=== PATIENT | male | born 1995 | race Caucasian/White ===

== ENCOUNTER 2023-07-10 13:13 | Emergency (ER) | payer OTHER ==
[~2023-07-10] VITALS: Ht 170.2 cm; Wt 86.6 kg
[2023-07-10 13:44] VITALS: TEMP 98.6
[2023-07-10] MEDS ORDERED: AMOXICILLIN TRIHYDRATE 500 MG CAPSULE PO ONE (14:30)
[2023-07-10] MEDS ORDERED: KETOROLAC TROMETHAMINE INJ 30 MG/ML VIAL ONE (14:49)
[2023-07-10] MEDS: KETOROLAC TROMETHAMINE INJ 30 MG/ML VIAL IV ONE (14:52)
[2023-07-10 16:36] VITALS: BP 119/84; O2SAT 99
== END 2023-07-10 16:36 | disposition home or self-care (01) ==
LOC: ER 13:38
DX: S82.042A Displaced comminuted fracture of left patella, initial encounter for closed fracture (principal); W18.30XA Fall on same level, unspecified, initial encounter; Y93.89 Activity, other specified; Y92.89 Other specified places as the place of occurrence of the external cause; Y99.8 Other external cause status
CPT/HCPCS: 29505; 73564; 96374; 99283; J1885